=== PATIENT | male | born 1980 | race Caucasian/White ===

== ENCOUNTER 2016-06-11 12:35 | Emergency (ER) | payer MEDICAID ==
[~2016-06-11] VITALS: Ht 182.9 cm; Wt 156.9 kg
[2016-06-11 12:45] VITALS: BP 165/105; PULSE 115; RESP 16; TEMP 96.9; O2SAT 98
--- NOTE | 2016-06-11 13:20 | NUR ---
BROUGHT BACK TO BED #8 AND REPORT GIVEN TO GERALD
--- NOTE | 2016-06-11 13:21 | NUR ---
Pt here in ED for c/o upper teeth pain 9/10 for 2 weeks. Swelling noted to upper teeth, pt took 3 pills of motrin this morning. Pt states he will be going to see specialist for dentures.
--- NOTE | 2016-06-11 13:28 | NUR ---
DR ALLISON AT BEDSIDE FOR EVALUATION
--- NOTE | 2016-06-11 13:37 | NUR ---
Patient given written and verbal discharge instructions and verbalizes understanding. ER MD discussed with patient the results and treatment provided. Patient in stable condition. ID arm band removed. Rx of penicillin Vk 500mg given. Opportunity for questions provided and answered.
== END 2016-06-11 13:37 | disposition home or self-care (01) ==
LOC: SED 12:35
DX: K05.10 Chronic gingivitis, plaque induced (principal); E66.01 Morbid (severe) obesity due to excess calories; Z68.42 Body mass index [BMI] 45.0-49.9, adult
CPT/HCPCS: 99283; J7030